=== PATIENT | female | born 1955 | race Caucasian/White ===

== ENCOUNTER 2017-02-15 08:50 | Emergency (ER) | payer MEDICAID ==
[~2017-02-15] VITALS: Ht 167.6 cm; Wt 95.0 kg
[~2017-02-15 08:50] MED LIST: AMLO5TAB2 PO; ATOR40TA16 PO; DICL50TA PO; LISI2.5T3 PO; RANI150C PO
[2017-02-15 08:52] VITALS: BP 214/97; PULSE 80; RESP 20; TEMP 98.3; O2SAT 99
[2017-02-15 09:26] LABS: BACTERIA, URINE RARE /hpf; BLOOD, URINE NEG (NEG); COMMENT (UR) CULT NOT INDICATED; CULTURE IF INDICATED CULT NOT INDICATED; GLUCOSE,URINE NEG (NEG); HYALINE CAST, URINE 15 /lpf (RARE); KETONE, URINE NEG (NEG); MUCUS URINE MOD /lpf (OCC); NITRITE,URINE NEG (NEG); PH, URINE 5.5 (5.0-8.5); SQUAMOUS EPITHELIAL CELL URINE 32 /hpf (0-5); URINE COLOR YELLOW (YELLW/STRAW)
[2017-02-15] MEDS ORDERED: PROM6.256 PO (10:10)
[2017-02-15] MEDS ORDERED: LEVA750T9 PO (10:10)
--- NOTE | 2017-02-15 10:10 | PD ---
HPI Chief Complaint: Complaint Time Seen by Provider: 09:58 Travel History International Travel<30 days: No Contact w/Intl Traveler<30days: No Traveled to known affect area: No History of Present Illness HPI This is a 61-year-old female who presents to the emergency department with 1 week of productive cough with clear sputum, constant, moderate severity associated with some left flank pain. She reports that her urine got darker and she is worried she had a urinary tract infection. She says she had a fever 2 days ago but that has subsided. She says her urinary tract infections always feel similar to this. She denies any dysuria. She did in March have a hysterectomy in the setting of endometrial cancer and is being closely followed by Dr. Aleks argueta. ON LICENSE OF [facility] Past Medical History Hx Anticoagulant Therapy: No Asthma: No Blood Disorders: No Anxiety: No Depression: No Heart Rhythm Problems: No Cancer: No (this isthe first) Cardiovascular Problems: No High Cholesterol: No Chemotherapy: No Chest Pain: No Congestive Heart Failure: No COPD: No Cerebrovascular Accident: No Diabetes: No Diminished Hearing: No Endocrine: No Gastrointestinal Disorders: No Genitourinary: Yes (hx. of UTIs) Headaches: Yes Hepatitis: No Hypertension: Yes Immune Disorder: No Implanted Vascular Access Dvce: No Neurologic: No Psychiatric: No Reproductive: No Respiratory: No Immunizations Current: Yes Radiation Therapy: No Sleep Apnea: No Thyroid Disease: No Menopausal: Yes : 1 Para: 1 Past Surgical History AICD: No Arteriovenous Shunt: No Body Medical Devices: NONE Section: Yes Gynecologic Surgery: Yes (C=SECTION) Hysterectomy: Yes Insulin Pump: No Joint Replacement: No Oral Surgery: Yes (TONSILLECTOMY) Pacemaker: No Tonsillectomy: Yes Other Surgery: Yes Social History Alcohol Use: No Tobacco Use: No Substance Use: No Allergies-Medications (Allergen,Severity, Reaction): Coded Allergies: No Known Allergies (Unverified , 09/09/16) Reported Meds & Prescriptions Reported Meds & Active Scripts Active Ranitidine (Ranitidine HCl) 150 Mg Cap 150 Mg PO BID Amlodipine (Amlodipine Besylate) 5 Mg Tab 5 Mg PO DAILY Review of Systems Except as stated in HPI: all other systems reviewed are Neg Physical Exam Narrative GENERAL:Well appearing, no acute distress SKIN: Focused skin assessment warm and dry. HEAD: Atraumatic. Normocephalic. EYES: Pupils equal and round. No injection or drainage. ENT: Moist mucous membranes NECK: Trachea midline. CARDIOVASCULAR: Regular rate and rhythm. No murmur appreciated. RESPIRATORY: Clear to auscultation. Breath sounds equal bilaterally. GASTROINTESTINAL: Abdomen soft, non-tender, nondistended. : Left CVA tenderness MUSCULOSKELETAL: No obvious deformities. NEUROLOGICAL: Awake and alert. No obvious cranial nerve deficits. Moving all extremities. PSYCHIATRIC: Appropriate mood and affect; insight and judgment normal. Data Data Last Documented VS Vital Signs Date Time Temp Pulse Resp B/P (MAP) Pulse Ox O2 Delivery O2 Flow Rate FiO2 02/15/17 08:52 98.3 80 20 214/97 (136) 99 Room Air Orders Orders Urinalysis - C+S If Indicated (02/15/17 08:57) Labs Laboratory Tests Test 02/15/17 09:00 Urine Color YELLOW Urine Turbidity HAZY Urine pH 5.5 Urine Specific [place] 1.028 Urine Protein 30 mg/dL Urine Glucose (UA) NEG mg/dL Urine Ketones NEG mg/dL Urine Occult Blood NEG Urine Nitrite NEG Urine Bilirubin NEG Urine Urobilinogen 4.0 MG/DL Urine Leukocyte Esterase TRACE Urine RBC 1 /hpf Urine WBC 4 /hpf Urine Squamous Epithelial Cells 32 /hpf Urine Bacteria RARE /hpf Urine Hyaline Casts 15 /lpf Urine Mucus MOD /lpf Microscopic Urinalysis Comment CULT NOT INDICATED MDM Medical Decision Making Medical Screen Exam Complete: Yes Emergency Medical Condition: Yes Interpretation(s) Urinalysis: Large amount of squamous epithelial cells, no obvious infection Differential Diagnosis Urinary tract infection, nephrolithiasis, pyelonephritis, pneumonia, hydronephrosis Narrative Course This is a 61-year-old female who presents to the emergency department with reports of dark urine and some flank pain. She is struggling with a cough that sounds like bronchitis on for 1 week. She says she's been coughing quite a bit and thinks she may have pulled a muscle when she was coughing. Her urinalysis does not demonstrate an infection. I offered her labs, CT imaging and an extensive workup given her recent history of cancer. She seems pretty convinced that this is probably just related to her coughing and she would like to try a course of antibiotic and cough medication prior to pursuing advanced imaging. I think this is reasonable as she appears very well and her vital signs are reassuring. Patient will be discharged home and was asked to return to the emergency department if her symptoms don't improve in 2-3 days. Diagnosis Primary Impression: Bronchitis Patient Instructions: General Instructions Additional Instructions: If you develop severe shortness of breath, chest pain, or difficulty breathing return to the emergency department. Complete your course of antibiotics. Follow up with your primary care physician in 2-3 days if your symptoms have not improved. Med/Other Pt SpecificInfo: Prescription(s) given Scripts Promethazine-Codeine Liq (Promethazine-Codeine Liq) 6.25-10 Mg/5 Ml Syrp 5-10 ML PO Q6H Y for COUGH AND/OR COLD SYMPTOMS, #100 ML 0 Refills Prov: Gianna Peraza MD 02/15/17 Levofloxacin (Levaquin) 750 Mg Tablet 750 MG PO DAILY for Infection for 7 Days, #7 TAB 0 Refills Prov: Gianna Peraza MD 02/15/17 Disposition: 01 DISCHARGE HOME Condition: Stable Gianna Peraza MD Feb 15, 2017 10:10
[2017-03-24] MEDS ORDERED: AMLO10TA2 PO (15:21)
[2017-03-24] MEDS ORDERED: RANI150C PO (15:21)
== END 2017-02-15 10:36 | disposition home or self-care (01) ==
LOC: NEPD 08:50
DX: J40 Bronchitis, not specified as acute or chronic (principal)
CPT/HCPCS: 81001; 99284

== ENCOUNTER 2017-08-07 06:02 | Day surgery (SDC) | payer MEDICAID ==
[~2017-08-07] VITALS: Ht 167.6 cm; Wt 100.0 kg
[~2017-08-07 06:02] MED LIST changes: +AMLO10TA2 PO; -AMLO5TAB2 PO; -ATOR40TA16 PO; -DICL50TA PO; -LISI2.5T3 PO
[2017-08-07] MEDS ORDERED: PERC5TAB12 PO (06:39)
[2017-08-07] MEDS ORDERED: ASCO100029 PO (06:39)
[2017-08-07] MEDS ORDERED: CYAN1TAB24 PO (06:39)
[2017-08-07 06:40] VITALS: BP 154/82; PULSE 85; RESP 20; TEMP 99.3; O2SAT 94
[2017-08-07] MEDS ORDERED: CLON0.1T PO (06:40)
[2017-08-07] MEDS ORDERED: CHLORHEXIDINE GLUCONATE 2 % 1 PACK (2 CLOTHS) TOPICAL SCH (06:45)
[2017-08-07] MEDS ORDERED: POVIDONE IODINE 5% (ANTISEPSIS KIT) 4 APPLICATIONS EACH NARE SCH (06:45)
[2017-08-07] MEDS ORDERED: SODIUM CHLORIDE 0.9% 1000 ML IV SCH (06:45)
[2017-08-07] MEDS ORDERED: ceFAZolin 2 GM PREMIX 50 ML - implanted port/tunneled catheter insertion IV SCH (06:45)
[2017-08-07] MEDS ORDERED: VANCOMYCIN 1000 MG/NS 250 ML - implanted port/tunneled catheter IV SCH ×2 (06:45)
[2017-08-07] MEDS ORDERED: fentaNYL CITRATE 250 MCG/5 ML AMP ONE (07:53)
[2017-08-07] MEDS ORDERED: MIDAZOLAM HCL 5 MG/5 ML VIAL ONE (07:53)
[2017-08-07] MEDS ORDERED: LIDOCAINE 1%/EPINEPHrine 1:100,000 SOLN 30 ML VIAL ONE (08:01)
[2017-08-07 09:00] VITALS: BP 161/81; PULSE 90; RESP 18; TEMP 98.7; O2SAT 95
[2017-08-07 09:15] VITALS: BP 163/94; PULSE 89; RESP 18; O2SAT 98
--- NOTE | 2017-08-07 09:39 | PD.RAD ---
Post Procedure Progress Note Pre Procedure Diagnosis: (1) Endometrial cancer Post Procedure Diagnosis: (1) Endometrial cancer Procedure Date: Aug 07, 2017 Supervising Radiologist: Ángel Duque Proceduralist/Assist: Cole Mac, RT(R), Bridgette Schulte RT(R) Anesthesia: Conscious Sedation Plan of Activity Patient to Unit: ROPU Patient Condition: Good See PACS Report for procedural detail/treatment Central Venous Access Device Procedure 1 Right Internal Jugular Infusaport Placement single lumen Ángel Duque MD Aug 07, 2017 09:39
[2017-08-07 09:45] VITALS: BP 153/66; PULSE 88; RESP 18; O2SAT 98
[2017-08-07] MEDS ORDERED: SODIUM CHLORIDE 0.9% FLUSH 10 ML FLUSH IVF PRN (09:45)
[2017-08-07 10:15] VITALS: BP_SYST 122; BP_SYST 126; BP_DIAS 74; BP_DIAS 79; PULSE 88; RESP 18; O2SAT 98
[2017-08-07 10:45] VITALS: BP 122/74; PULSE 88; RESP 18; O2SAT 98
--- NOTE | 2017-08-07 13:45 | RADRPT ---
EXAM DATE/TIME: 08/07/2017 08:56 [facility] COMPARISON: No previous studies available for comparison. INDICATIONS : Patient with endometrial cancer in need of [id number] placement. MEDICAL HISTORY : HTN, Abnormal pelvic exam SURGICAL HISTORY : Vaginal biopsy ENCOUNTER: Initial ACUITY: 1 month PAIN SCORE: 7/10 LOCATION: Abdomen and low back FLUORO TIME: 0.4 minutes IMAGE SERIES: 1 SEDATION TIME: 30 minutes ACCESS: Right internal jugular vein SEDATION: 1.) 5 mg midazolam (Versed) IV 2.) 250 mcg fentanyl (Sublimaze) IV Prophylactic antibiotics were administered with appropriate pre-procedure timing. Vancomycin within 2 hours of procedure, Ancef (or alternative) within 1 hour of procedure. DEVICE: 1. 8 [place] single lumen Bard Power Port PROCEDURE : 1. Continuous pulse oximetry and EKG monitoring. 2. Intravenous conscious sedation. 3. Ultrasound guidance for venous access. 4. Fluoroscopic guided implantable central venous port placement. The patient was placed supine. The neck was prepped in sterile fashion. Full sterile technique was u sed, including cap, mask, sterile gloves and gown, and a large sterile sheet. Hand hygiene and 2% ch lorhexidine Betadine was utilized per protocol for cutaneous antisepsis with appropriate dry time for site. Sterile gel and sterile probe cover were utilized for ultrasound guidance. The skin and sub cutaneous tissues were infiltrated with local anesthetic solution. Under direct ultrasound guidance, central venous access was accomplished in the targeted vessel. The ultrasound images depicting access guidance were stored and saved to PACS for permanent record. A s ubcutaneous pocket was created using blunt dissection. The port was introduced to the pocket. The c atheter tubing was fed through a subcutaneous tunnel to the venotomy site. The catheter tubing was c ut to a suitable length and then was introduced through a valved Peel-Away sheath and positioned with catheter tubing tip at the cavo-atrial junction level. The pocket incision was closed with subcutic ular Vicryl suture. Steri-Strips were applied. The port was flushed and locked with heparin solutio n per protocol. Sterile dressing was applied to the site. The patient tolerated the procedure well. Conscious sedation was performed with the prescribed dosages and duration as above in the presence of an independent trained radiology nurse to assist in the monitoring of the patient. EKG and oximetry remained stable throughout the procedure. The patient tolerated the procedure well and there were no complications. The patient was sent to post anesthesia recovery in stable condition. CONCLUSION: Uncomplicated ultrasound and fluoroscopic guided implanted central venous port catheter placement as described in detail above. An 8 [place] Power port was placed. Ánegl Duque MD on August 07, 2017 at 13:43 Board Certified Radiologist. This report was verified electronically.
== END 2017-08-07 11:00 | disposition home or self-care (01) ==
LOC: HROP 06:02 → HRIP 06:05 → HROP 11:00
PROVIDERS: ATTEND Nurse Practitioner Family
DX: Z45.2 Encounter for adjustment and management of vascular access device (principal); C54.1 Malignant neoplasm of endometrium
CPT/HCPCS: 36561; 76937; 77001; 99152; 99153; C1788; J0690; J1642; J2250; J3010; J3370; J7030; J7050